=== PATIENT | male | born 1995 | race Caucasian/White ===

== ENCOUNTER 2018-07-08 15:10 | Emergency (ER) | payer OTHER, MEDICAID ==
[~2018-07-08] VITALS: Ht 175.3 cm; Wt 78.9 kg
[2018-07-08 15:15] VITALS: BP 144/88
--- NOTE | 2018-07-08 15:30 | NUR ---
PATIENT PRESENTS TO ED WITH COMPLAINTS OF PAIN OF LEFT HAND S/P FALL FROM SKATEBOARD. LEFT HAND APPEARS SWOLLEN AND APPARENT DEFORMITY TO BACK OF HAND. PATIENT IS STRUGGLING TO MOVE 4TH AND 5TH DIGITS. PATIENT DENIES LOC AFTER FALL, HAS BRUISING TO FACE. DENIES N/V/D; SKIN IS PINK/WARM/DRY; AAOX4 WITH EVEN AND STEADY GAIT; LUNGS CLEAR BL; HR EVEN AND REGULAR; PT DENIES ANY FEVER, CP, SOB, OR COUGH AT THIS TIME; PATIENT STATES PAIN OF 3/10 AT THIS TIME; VSS; PATIENT POSITIONED FOR COMFORT; HOB ELEVATED; BEDRAILS UP X1; BED DOWN. ER MD MADE AWARE OF PT STATUS.
[2018-07-08] MEDS ORDERED: KETOROLAC 60 MG/2 ML VIAL IM ONE (16:05)
--- NOTE | 2018-07-08 16:14 | NUR ---
Patient discharged with v/s stable. Written and verbal after care instructions given and explained. Patient alert, oriented and verbalized understanding of instructions. Ambulatory with steady gait. All questions addressed prior to discharge. ID band removed. Patient advised to follow up with PMD. Rx of CELEBREX given. Patient educated on indication of medication including possible reaction and side effects. Opportunity to ask questions provided and answered. ENCOURAGED TO FREQUENTLY APPLY ICE TO RIGHT HAND X 2-3 DAYS---TAKE MEDICATION PRESCRIBED.
[2018-07-08 16:23] VITALS: BP 144/88
== END 2018-07-08 16:14 | disposition home or self-care (01) ==
LOC: MED 15:10
DX: S63.501A Unspecified sprain of right wrist, initial encounter (principal); V00.131A Fall from skateboard, initial encounter; Y93.51 Activity, roller skating (inline) and skateboarding; Y92.89 Other specified places as the place of occurrence of the external cause; Y99.8 Other external cause status
CPT/HCPCS: 73130; 96372; 99284; J1885; Q0092